=== PATIENT | female | born 1965 | race Caucasian/White ===

== ENCOUNTER 2016-11-18 00:22 | Inpatient (IN) | payer MEDICAID, OTHER ==
[~2016-11-18] VITALS: Ht 162.6 cm; Wt 87.0 kg
[2016-11-18] MEDS ORDERED: ONDANSETRON 2MG/ML, 2ML ONE (00:46)
[2016-11-18] MEDS ORDERED: LABETALOL 5MG/ML, 20ML ONE (00:46)
[2016-11-18] MEDS ORDERED: DIPHENHYDRAMINE 50 MG/ML, 1ML ONE (00:46)
[2016-11-18] MEDS ORDERED: MORPHINE SULFATE 4 MG/ML, 1ML ONE (00:47)
[2016-11-18] MEDS ORDERED: LABETALOL 5MG/ML, 20ML IVPush ONE (01:00)
[2016-11-18] MEDS ORDERED: DIPHENHYDRAMINE 50 MG/ML, 1ML IVPush ONE (01:00)
[2016-11-18] MEDS ORDERED: MORPHINE SULFATE 4 MG/ML, 1ML IVPush PRN (01:00)
[2016-11-18] MEDS ORDERED: ONDANSETRON 2MG/ML, 2ML IVPush ONE (01:00)
[2016-11-18 01:19] LABS: HEMATOCRIT 44.1 % (34.6-47.8); HEMOGLOBIN 14.5 g/dL (11.7-16.4); WHITE BLOOD COUNT 5.7 x10^3/uL (3.4-10)
[2016-11-18 01:20] LABS: ASPARTATE AMINO TRANSFERASE 36 U/L (15-37); BLOOD UREA NITROGEN 25 mg/dL (7-18)
[2016-11-18 01:25] LABS: IS PT STATUS REG ER OR PRE ER? YES
[2016-11-18 01:43] LABS: DIFF TOTAL CELLS COUNTED 100 CELL DIFF
[2016-11-18 01:59] LABS: VERIFY COUNTS? YES
[2016-11-18 02:04] LABS: ANISOCYTOSIS 1+; OVALOCYTES 1+; POLYCHROMASIA 1+
[2016-11-18] MEDS ORDERED: OMNIPAQUE 350 MG/ML, 100ML BOTTLE ONE (02:31)
[2016-11-18] MEDS ORDERED: MAALOX/HYOSCYAMINE/LIDOCAINE 45 ML BTL ONE (03:16)
[2016-11-18] MEDS ORDERED: MAALOX/HYOSCYAMINE/LIDOCAINE 45 ML BTL PO ONE (03:30)
[2016-11-18] MEDS ORDERED: SODIUM CHLORIDE 0.9% 1,000 ML IV SCH (03:38)
[2016-11-18] MEDS ORDERED: LABETALOL 5MG/ML, 20ML IVPush PRN (04:00)
[2016-11-18] MEDS ORDERED: POTASSIUM CHLORIDE 20 MEQ TAB.ER.PRT PO ONE (04:00)
[2016-11-18] MEDS ORDERED: NITROGLYCERIN 0.4 MG BOTTLE (25 TABS) SL PRN (04:00)
[2016-11-18] MEDS ORDERED: ACETAMINOPHEN 325 MG TABLET ONE (04:01)
[2016-11-18] MEDS: ACETAMINOPHEN 325 MG TABLET PO PRN ×2 (04:05→15:07)
[2016-11-18] MEDS ORDERED: POTASSIUM CHLORIDE 20 MEQ TAB.ER.PRT ONE (04:28)
[2016-11-18 04:36] LABS: IS PT STATUS REG ER OR PRE ER? YES
[2016-11-18] MEDS ORDERED: hydrALAzine 20 MG/ML, 1ML IV PRN (06:30)
[2016-11-18] MEDS ORDERED: REGADENOSON 0.4 MG/5 ML SYRINGE ONE (08:42)
[2016-11-18] MEDS ORDERED: CLOPIDOGREL 75 MG TABLET PO SCH (09:00)
[2016-11-18 09:41] VITALS: BP 109/65
[2016-11-18 12:19] LABS: IS PT STATUS REG ER OR PRE ER? NO
[2016-11-18 13:23] VITALS: BP 123/84
[2016-11-18] MEDS ORDERED: CLOP75TA PO (18:25)
[2016-11-19] MEDS ORDERED: ASPIRIN 325 MG TABLET EC PO SCH (06:00)
== END 2016-11-18 18:55 | disposition home or self-care (01) | DRG 313 ==
LOC: ED 00:27 → EDIP 03:14 → 5SO 09:33
PROVIDERS: ADMIT Hospitalist; ATTEND Hospitalist
DX: R07.9 Chest pain, unspecified (principal); I25.2 Old myocardial infarction; I11.0 Hypertensive heart disease with heart failure; I50.32 Chronic diastolic (congestive) heart failure; J98.11 Atelectasis; I25.10 Atherosclerotic heart disease of native coronary artery without angina pectoris; E78.5 Hyperlipidemia, unspecified; E78.00 Pure hypercholesterolemia, unspecified; Z95.1 Presence of aortocoronary bypass graft; Z95.5 Presence of coronary angioplasty implant and graft; Z88.5 Allergy status to narcotic agent; Z88.6 Allergy status to analgesic agent; Z79.899 Other long term (current) drug therapy
CPT/HCPCS: 36415; 71010; 71275; 78452; 80053; 80061; 84484; 85025; 93005; 93017; 93306; 96374; 96375; J2405; J2785; Q9967; A9502; C9898; J1200; J7030